=== PATIENT | female | born 1940 | race Caucasian/White ===

== ENCOUNTER 2022-09-21 13:14 | Outpatient (CLI) | payer MEDICARE ==
[2022-09-21 19:56] LABS: ABSOLUTE RETICS # AUTO 0.052 10^6/uL (0.020-0.110); BASOPHILS # (AUTO) 0.1 10^3/uL (0.0-0.1); BASOPHILS % (AUTO) 1.2 %; EOSINOPHILS # (AUTO) 0.1 10^3/uL (0.0-0.7); EOSINOPHILS % (AUTO) 1.7 %; HCT - HEMATOCRIT 43.8 % (37.0-47.0); HGB - HEMOGLOBIN 13.8 g/dL (12.0-16.0); LYMPHOCYTES # (AUTO) 1.1 10^3/uL (1.5-3.5); LYMPHOCYTES % (AUTO) 26.9 %; MEAN CORPUSCULAR HEMOGLOBIN 29.9 pg (27.0-31.0); MEAN CORPUSCULAR HGB CONC 31.5 g/dL (32.0-36.0); MEAN CORPUSCULAR VOLUME 94.8 fL (81.0-99.0); MEAN PLATELET VOLUME 9.3 fL (7.9-10.8); MONOCYTES # (AUTO) 0.6 10^3/uL (0.0-1.0); MONOCYTES % (AUTO) 14.7 %; NEUTROPHILS # (AUTO) 2.3 10^3/uL (1.5-6.6); NEUTROPHILS % (AUTO) 55.3 %; PLT - PLATELET COUNT 282 10^3/uL (130-450); RED BLOOD COUNT 4.62 10^6/uL (4.20-5.40); RED CELL DISTRIBUTION WIDTH 13.6 % (12.0-15.0); RETICULOCYTE COUNT % (AUTO) 1.13 % (0.5-2.3); WHITE BLOOD COUNT 4.1 x10^3/uL (4.8-10.8)
[2022-09-21 20:32] LABS: THYROID STIMULATING HORMONE 1.85 uIU/mL (0.34-5.60)
[2022-09-21 20:37] LABS: ALBUMIN 4.5 g/dL (3.2-5.5); ALBUMIN/GLOBULIN RATIO 1.6 (1.0-2.2); BILIRUBIN,TOTAL 0.5 mg/dL (0.2-1.0); CALCIUM 9.5 mg/dL (8.5-10.3); CREATININE 0.6 mg/dL (0.4-1.0); MAGNESIUM 2.5 mg/dL (1.7-2.8); POTASSIUM 3.9 mmol/L (3.5-5.0); TOTAL PROTEIN 7.3 g/dL (6.7-8.2)
[2022-09-21 20:43] LABS: FOLATE 22.18 ng/mL (5.90 - >24.8)
[2022-09-21 21:16] LABS: ESTIMATED AVERAGE GLUCOSE 108 mg/dL (70-100); HEMOGLOBIN A1c% 5.4 % (4.27-6.07)
== END 2022-09-21 13:15 | disposition home or self-care (01) ==
LOC: LAB.S 13:14
PROVIDERS: ATTEND Nurse Practitioner Family
DX: Z00.00 Encounter for general adult medical examination without abnormal findings (principal); R53.83 Other fatigue; H61.23 Impacted cerumen, bilateral; R60.0 Localized edema; R03.0 Elevated blood-pressure reading, without diagnosis of hypertension; R31.9 Hematuria, unspecified
CPT/HCPCS: 36415; 80053; 82607; 82746; 83036; 83540; 83735; 84443; 84466; 85025; 85045

== ENCOUNTER 2022-10-18 20:19 | Emergency (ER) | payer MEDICARE ==
[2022-10-18 20:42] VITALS: BP 183/68
--- NOTE | 2022-10-18 21:33 | XRAY Report ---
PROCEDURE: Wrist 3 View LT INDICATIONS: GLF/injured L wrist landed on hard foot stool. TECHNIQUE: 3 views of the wrist were acquired. COMPARISON: None. FINDINGS: Bones: Distal radius metadiaphyseal fracture with minimal displacement. No dislocations. No suspici ous bony lesions. Soft tissues: No suspicious soft tissue calcifications or masses. IMPRESSION: Distal radius fracture. Reviewed by: Juancarlos Tubbs MD on 10/18/2022 9:32 PM PDT Approved by: Juancarlos Tubbs MD on 10/18/2022 9:32 PM PDT Station ID: [id number]
[2022-10-18] MEDS ORDERED: HYDROcod/ACET 5/325 Prepack 4 PO STA (21:42)
--- NOTE | 2022-10-18 21:42 | ED Physician Documentation ---
PD HPI UPPER EXT INJURY - Stated complaint Stated Complaint: GLF, WRIST PAIN - Chief complaint Chief Complaint: Trauma Ext - History obtained from History obtained from: Patient - Additonal information Additional information: Right-handed woman had a trip and fall landing on her nondominant left wrist with moderate pain at the distal wrist. Isolated injury. This happened this evening. PD PAST MEDICAL HISTORY - Past Medical History HEENT: Chronic vision loss, Glaucoma - Past Surgical History Past Surgical History: Yes HEENT: Cataracts - Present Medications Home Medications: Ambulatory Orders Medication Instructions Recorded Confirmed Timolol 0.25% Ophth Drops 1 drop RIGHTEYE BID 06/27/14 06/27/14 [Timoptic 0.25% Ophth Drops] Travoprost 0.004% Ophth Drops 1 drop RIGHTEYE BID 06/27/14 06/27/14 [Travatan Z] - Allergies Allergies/Adverse Reactions: Allergies Allergy/AdvReac Type Severity Reaction Status Date / Time No Known Drug Allergies Allergy Verified 06/27/14 23:17 - Social History Does the pt smoke?: No Smoking Status: Never smoker Does the pt drink ETOH?: No Does the pt have substance abuse?: No - Immunizations Immunizations are current?: Yes - POLST Patient has POLST: No PD ED PE NORMAL - Vitals Vital signs reviewed: Yes - General General: Alert and oriented X 3, No acute distress - Derm Derm: Normal color, Warm and dry - Extremities Extremities: Other (Tender over the distal dorsal left wrist without deformity. Limited range of motion due to pain. No neurovascular compromise in the left hand) - Neuro Neuro: Alert and oriented X 3, Normal speech Results - Vitals Vitals: Vital Signs - 24 hr 10/18/22 10/18/22 10/18/22 20:39 20:48 21:31 Temperature 36.9 C Heart Rate 88 Respiratory 18 16 17 Rate Blood Pressure 183/68 H O2 Saturation 98 Oxygen O2 Source Room air - Rads (name of study) Minimally displaced and very slightly impacted fracture of the left distal radius On wrist x-ray Relevant Findings:: Final report received, EMP independent interpretation of test Procedures - Splint (location) - Minor Left upper extremity Splint applied by: Physician Type of splint: Fiberglass, Short arm, Volar cock up Other: Patient tolerated well, No complications, Neurovascular intact Departure - Departure Disposition: 01 Home, Self Care Clinical Impression: Distal radius fracture Condition: Good Record reviewed to determine appropriate education?: Yes Instructions: ED Fx Forearm Radius Ulna No Redu Requ Follow-Up: [facility] [Provider Group] - Within 1 week Comments: KEEP THE SPLINT ON AND DRY CALL ORTHOPEDICS OFFICE TOMORROW FOR APPT RETURN IF WORSE ELEVATE!!!! TYLENOL OK FOR PAIN
== END 2022-10-18 22:14 | disposition home or self-care (01) ==
LOC: ED 20:19
DX: S52.502A Unspecified fracture of the lower end of left radius, initial encounter for closed fracture (principal); W19.XXXA Unspecified fall, initial encounter
CPT/HCPCS: 29125; 99283

== ENCOUNTER 2022-10-24 08:00 | Outpatient (CLI) | payer MEDICARE ==
--- NOTE | 2022-10-24 15:05 | XRAY Report ---
PROCEDURE: Wrist 3 View LT INDICATIONS: LEFT WRIST PAIN TECHNIQUE: 3 views of the wrist were acquired. COMPARISON: None. FINDINGS: Bones: Slight interval bone remodeling of the distal radial metadiaphysis fracture. Scaphoid view: Not applicable. Soft tissues: No suspicious soft tissue calcifications or masses. IMPRESSION: Slight interval bone remodeling of the mildly displaced distal radial metadiaphysis fracture. Reviewed by: Manuel Tellez on 10/24/2022 3:04 PM PDT Approved by: Manuel Tellez on 10/24/2022 3:04 PM PDT Station ID: [id number]
== END 2022-10-24 23:59 | disposition home or self-care (01) ==
LOC: DI.WOS 08:00
PROVIDERS: ATTEND Orthopaedic Surgery
DX: S52.502D Unspecified fracture of the lower end of left radius, subsequent encounter for closed fracture with routine healing (principal)

== ENCOUNTER 2022-11-07 08:00 | Outpatient (CLI) | payer MEDICARE ==
--- NOTE | 2022-11-07 14:59 | XRAY Report ---
PROCEDURE: Wrist 3 View LT INDICATIONS: LEFT WRIST FRACTURE TECHNIQUE: 3 views of the wrist were acquired. COMPARISON: 10/24/2022 FINDINGS: Bones: Slight interval bone remodeling of the extra articular distal radial fracture. Scaphoid view: Unremarkable. Soft tissues: No suspicious soft tissue calcifications or masses. IMPRESSION: Slight interval bone remodeling, indicating interval healing. Reviewed by: Manuel Tellez on 11/07/2022 2:58 PM PDT Approved by: Manuel Tellez on 11/07/2022 2:58 PM PDT Station ID: [id number]
== END 2022-11-07 23:59 | disposition home or self-care (01) ==
LOC: DI.WOS 08:00
PROVIDERS: ATTEND Orthopaedic Surgery
DX: S52.592D Other fractures of lower end of left radius, subsequent encounter for closed fracture with routine healing (principal)

== ENCOUNTER 2022-11-28 08:00 | Outpatient (CLI) | payer MEDICARE ==
--- NOTE | 2022-11-28 16:43 | XRAY Report ---
PROCEDURE: Wrist 3 View LT INDICATIONS: LEFT WRIST FRACTURE TECHNIQUE: 3 views of the wrist were acquired. COMPARISON: X-ray left wrist, 10/18/2022, 10/24/2022 and 11/07/2022. FINDINGS: Bones: There is a distal radial metaphyseal fracture with mild displacement. The alignment is unchan ged. There is sclerosis along the fracture line. No suspicious bony lesions. Soft tissues: No suspicious soft tissue calcifications or masses. IMPRESSION: No significant change in appearance of distal radial metaphyseal fracture. Reviewed by: Saad Nieto MD on 11/28/2022 4:42 PM PDT Approved by: Saad Nieto MD on 11/28/2022 4:42 PM PDT Station ID: [id number]
== END 2022-11-28 23:59 | disposition home or self-care (01) ==
LOC: DI.WOS 08:00
PROVIDERS: ATTEND Orthopaedic Surgery
DX: S52.592D Other fractures of lower end of left radius, subsequent encounter for closed fracture with routine healing (principal)

== ENCOUNTER 2023-09-12 08:00 | Outpatient (CLI) | payer MEDICARE | END 2023-09-12 23:59 | disposition home or self-care (01) | LOC: LAB.S 08:00 | PROVIDERS: ATTEND Nurse Practitioner | DX: N39.0 Urinary tract infection, site not specified (principal) | CPT/HCPCS: 87086 ==

== ENCOUNTER 2023-11-07 06:57 | Outpatient (CLI) | payer MEDICARE ==
--- NOTE | 2023-11-07 13:45 | Ultrasound Report ---
PROCEDURE: Renal (Retroperitoneal) INDICATIONS: KIDNEY STONES TECHNIQUE: Real-time scanning was performed of the retroperitoneal organs, with image documentation. COMPARISON: None. FINDINGS: Kidneys: Kidneys are normal in size. Right kidney measures 8.4 cm long; left kidney measures 10.7 c m long. Right renal cortical thickness is 0.6 cm; left renal cortical thickness is 0.9 cm. No solid masses, hydronephrosis, or nephrolithiasis. Bladder: Pre-void bladder volume is 261 mL. Post-void residual is 0 mL. Pre-void images demonstrat e no intraluminal masses or stones. On pre-void images, bilateral ureteral jets are noted with color Doppler interrogation. (Of note, ureteral jets may not be detectable in up to 25% of cases due to i nsufficient differences in specific gravity between ureteral and bladder urine). Miscellaneous: No free abdominal fluid. IMPRESSION: Mildly diminutive right kidney with slight cortical thinning. This may be atrophy from vascular cause . No significant calcifications to explain hematuria. If fine calcifications are suspected, CT KUB is r ecommended. Reviewed by: Denisse Omer MD on 11/07/2023 1:44 PM PDT Approved by: Denisse Omer MD on 11/07/2023 1:44 PM PDT Station ID: [id number]
== END 2023-11-07 06:58 | disposition home or self-care (01) ==
LOC: DI 06:57
PROVIDERS: ATTEND Internal Medicine
DX: N20.0 Calculus of kidney (principal)

== ENCOUNTER 2023-11-23 07:03 | Outpatient (CLI) | payer MEDICARE ==
[2023-11-23 15:13] LABS: EOSINOPHILS % (AUTO) 2.7 %; HGB - HEMOGLOBIN 13.8 g/dL (12.0-16.0); LYMPHOCYTES % (AUTO) 39.7 %; MEAN CORPUSCULAR HEMOGLOBIN 30.3 pg (27.0-31.0); MEAN CORPUSCULAR HGB CONC 32.1 g/dL (32.0-36.0); MEAN CORPUSCULAR VOLUME 94.3 fL (81.0-99.0); MEAN PLATELET VOLUME 9.2 fL (7.9-10.8); MONOCYTES % (AUTO) 13.6 %; PLT - PLATELET COUNT 261 10^3/uL (130-450); RED BLOOD COUNT 4.56 10^6/uL (4.20-5.40); RED CELL DISTRIBUTION WIDTH 13.4 % (12.0-15.0)
[2023-11-23 15:21] LABS: ABNORMAL LYMPHS % (MANUAL) 0 %; BAND NEUTROPHILS % (MANUAL) 0 %
[2023-11-23 15:56] LABS: THYROID STIMULATING HORMONE 2.82 uIU/mL (0.34-5.60)
[2023-11-23 16:07] LABS: BASOPHILS % (MANUAL) 1 %; EOSINOPHILS # (MANUAL) 0.1 10^3/uL (0-0.7); LYMPHOCYTES % (MANUAL) 34 %; MONOCYTES # (MANUAL) 0.4 10^3/uL (0.0-1.0); NEUTROPHILS # (MANUAL) 1.5 10^3/uL (1.5-6.6); PLATELET ESTIMATE, MANUAL NORMAL (130-450,000) (NORMAL); PLATELET MORPHOLOGY NORMAL APPEARANCE (NORMAL); RBC MORPHOLOGY (MULTIPLE) NORMAL APPEARANCE (NORMAL)
[2023-11-23 16:25] LABS: ALBUMIN 4.6 g/dL (3.2-5.5); ALBUMIN/GLOBULIN RATIO 2.2 (1.0-2.2); ALKALINE PHOSPHATASE 62 IU/L (42-121); ALT ALANINE AMINOTRANSFERASE 27 IU/L (10-60); AST ASPARTATE AMINOTRANSFERASE 28 IU/L (10-42); BILIRUBIN,TOTAL 0.6 mg/dL (0.2-1.0); BUN - BLOOD UREA NITROGEN 12 mg/dL (6-20); CALCIUM 9.8 mg/dL (8.5-10.3); CARBON DIOXIDE - CO2 27 mmol/L (21-32); CHLORIDE 107 mmol/L (101-111); CHOL/HDL RATIO 3.1 (<4.4); CHOLESTEROL 291 mg/dL; CREATININE 0.6 mg/dL (0.6-1.3); CRP - C-REACTIVE PROTEIN < 0.5 mg/dL (<0.5); GFR - MDRD 96 (>89); GLUCOSE 93 mg/dL (74-104); HDL CHOLESTEROL 95 mg/dL; LDL CHOLESTEROL,CALCULATED 187 mg/dL; POTASSIUM 3.9 mmol/L (3.5-4.5); SODIUM 141 mmol/L (135-145); TOTAL PROTEIN 6.7 g/dL (6.4-8.9); TRIGLYCERIDES 46 mg/dL (48-352); VLDL CHOLESTEROL 9 mg/dL
[2023-11-23 21:20] LABS: ESTIMATED AVERAGE GLUCOSE 114 mg/dL (70-100); HEMOGLOBIN A1c% 5.6 % (4.27-6.07)
== END 2023-11-23 07:04 | disposition home or self-care (01) ==
LOC: LAB.S 07:03
PROVIDERS: ATTEND Internal Medicine
DX: N20.0 Calculus of kidney (principal); Z13.220 Encounter for screening for lipoid disorders; S52.592A Other fractures of lower end of left radius, initial encounter for closed fracture; G62.9 Polyneuropathy, unspecified; R26.89 Other abnormalities of gait and mobility; R25.2 Cramp and spasm
CPT/HCPCS: 36415; 80053; 80061; 82306; 83036; 83721; 83970; 84155; 84165; 84443; 85025; 86140

== ENCOUNTER 2023-11-23 09:05 | Outpatient (CLI) | payer MEDICARE ==
--- NOTE | 2023-11-23 15:01 | XRAY Report ---
PROCEDURE: Cervical Spine w/Flex/Ext 6+V INDICATIONS: SHUFFLING GAIT,NEUROPATHY TECHNIQUE: 7 views of the cervical spine were acquired. COMPARISON: None. FINDINGS: Bones: No fractures or dislocations to the 71 level. No suspicious bony lesions. There is normal r geri of motion between flexion and extension, with preserved normal bony alignment. Multilevel degene rative disc space narrowing most prominent at C5-6. Multilevel uncovertebral arthropathy is present. Soft tissues: Prevertebral soft tissues are normal in thickness. IMPRESSION: Multilevel level disc bulges as well as uncovertebral arthropathy most severe at C5-6. Reviewed by: Yesica Stovall MD on 11/23/2023 2:59 PM PDT Approved by: Yesica Stovall MD on 11/23/2023 2:59 PM PDT Station ID: [id number]
--- NOTE | 2023-11-23 15:04 | XRAY Report ---
PROCEDURE: Lumbar Spine 4V INDICATIONS: SHUFFLING GAIT,NEUROPATHY TECHNIQUE: 3 views of the lumbar spine were acquired. COMPARISON: None. FINDINGS: Bones: 5 yto-lyh-fulptzk vertebrae are present. There is good 1/2 anterolisthesis of L4 on L5 measu ring 1.3 cm. Multilevel degenerative disc space narrowing most severe at L4-5, L5-S1. Multilevel fora praveen narrowing most severe at L4-5 and L5-S1. No vertebral body compression fractures. No suspiciou s bony lesions. Soft tissues: Overlying bowel gas pattern is normal. No suspicious soft tissue calcifications. IMPRESSION: Multilevel degenerative changes most severe at L4-5 and L5-S1. Reviewed by: Yesica Stovall MD on 11/23/2023 3:03 PM PDT Approved by: Yesica Stovall MD on 11/23/2023 3:03 PM PDT Station ID: [id number]
== END 2023-11-23 09:06 | disposition home or self-care (01) ==
LOC: DI.S 09:05
PROVIDERS: ATTEND Internal Medicine
DX: M47.812 Spondylosis without myelopathy or radiculopathy, cervical region (principal); M50.30 Other cervical disc degeneration, unspecified cervical region; M47.816 Spondylosis without myelopathy or radiculopathy, lumbar region; M47.817 Spondylosis without myelopathy or radiculopathy, lumbosacral region
CPT/HCPCS: 36415; 80053; 80061; 82306; 83036; 83721; 83970; 84155; 84165; 84443; 85025; 86140

== ENCOUNTER 2024-01-05 13:30 | Outpatient (CLI) | payer MEDICARE ==
--- NOTE | 2024-01-07 14:28 | MRI Report ---
PROCEDURE: Lumbar Spine WO INDICATIONS: SPINAL STENOSIS TECHNIQUE: Noncontrast sagittal T1 spin echo and T2 fast echo, sagittal STIR, axial T1 and T2 fast spin echo thr ough the lumbar spine. In cases with scoliosis, additional coronal T2 fast spin echo may be performe d. COMPARISON: None. FINDINGS: Image quality: Excellent. Alignment and Curvature: Grade 1 anterolisthesis of L4 on L5. Bone Marrow: Marrow is of normal overall signal. No acute vertebral body compression fractures. Spinal Cord: Conus medullaris terminates at the L1 level. Visualized cord demonstrates normal signa l and size. Paraspinous Soft Tissues: No paravertebral masses. T12-L1: Disc desiccation. L1-L2: Disc desiccation, broad-based disc bulge, facet effusions, mild ligamentum flavum hypertrop hy. L2-L3: Disc desiccation, broad-based disc bulge, ligamentum flavum hypertrophy, facet effusions. L3-L4: Disc desiccation, broad-based disc bulge, ligamentum flavum hypertrophy, right facet effusio n. L4-L5: Disc desiccation, broad-based disc bulge, ligamentum flavum hypertrophy, facet effusions and facet hypertrophy causing moderate to severe spinal canal narrowing. Mild bilateral neural foraminal narrowing. 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 Of note, there is moderate to severe spinal canal narrowing at L4-5 and mild bilateral neural foraminal narrowing at L4-5. Reviewed by: Manuel Tellez MD on 01/07/2024 2:26 PM PDT Approved by: Manuel Tellez MD on 01/07/2024 2:26 PM PDT Station ID: [id number]
== END 2024-01-05 13:31 | disposition home or self-care (01) ==
LOC: DI 13:30
PROVIDERS: ATTEND Internal Medicine
DX: M51.36 Other intervertebral disc degeneration, lumbar region (principal); M48.061 Spinal stenosis, lumbar region without neurogenic claudication; M47.816 Spondylosis without myelopathy or radiculopathy, lumbar region; M43.16 Spondylolisthesis, lumbar region; M51.37 Other intervertebral disc degeneration, lumbosacral region; M47.817 Spondylosis without myelopathy or radiculopathy, lumbosacral region